=== PATIENT | male | born 1965 | race Caucasian/White ===

== ENCOUNTER 2016-08-02 09:22 | Observation (INO) ==
[2016-08-02] MEDS ORDERED: Aspirin 81 MG TAB.CHEW PO ONE (09:25)
[2016-08-02] MEDS ORDERED: Nitroglycerin 1 INCH/GM PACKET TP ONE (09:25)
--- NOTE | 2016-08-02 09:27 | Emergency Department Note ---
Disposition Clinical Impression: Chest pain Qualifiers: Chest pain type: precordial chest pain Qualified Code(s): R07.2 - Precordial pain Disposition: Admitted As Inpatient Condition: Good Chest Pain HPI - General Time Seen by Provider: 08/02/16 09:24 Source: patient, EMS, other (Patient's nurse practitioner) Mode of arrival: EMS Limitations: no limitations Vital Signs Reviewed: Yes Nursing Notes Reviewed: Yes - History of Present Illness HPI Narrative: Patient reports that he started having some anterior left chest discomfort on , 4 days ago. He states that it has been "staying there" but it is worse if he is up and exertional. When he is up and walking he gets more shortness of breath and some sweating. He denies any nausea, cough, fevers or chills. He denies abdominal or back pain. Denies any lower extremity swelling , immobilization or injury. He was seen in emergency department on Tuesday after being evaluated in urgent care. He did see his primary care provider today and has been referred back here for evaluation with the persistent pain. He states he does have some tightness in his left chest at this time. He denies that he has been having any other new symptoms, change in medicines, changes to answer caffeine. He does have a history of reported hypertension, elevated cholesterol and previous smoking. There is a family history of coronary disease in his father. Patient does not have history of diabetes or obesity. An EKG was performed of his primary care office and this was sent with the patient. This showed a sinus rhythm with a rate of 78, axis LXXI, NH interval 200 and a QT/QTc of 388/442. He did have left posterior fascicular block but no acute ischemic or infarct changes present. This is on my interpretation. Pt complaint: chest pain Onset (ago): day(s) (4) Duration: constant Onset: during rest Pain Location: substernal Severity: moderate Quality: tightness, heaviness Pain Radiation: none Improves with: rest Worsens with: exertion Associated symptoms: Reports: diaphoresis, dyspnea. Denies: nausea, vomiting, syncope, palpitations, fever, cough, leg swelling Treatments prior to arrival chest pain: none - Related Data Home Medications Medication Instructions Recorded Confirmed Alprazolam [Xanax 0.5 MG Tablet] 1 mg PO QID 03/16/15 07/28/16 Atorvastatin [Lipitor] 40 mg PO HS 03/16/15 07/28/16 Diltiazem CD (24hr) [Cardizem CD] 300 mg PO DAILY 03/16/15 07/28/16 [place] Carbonate ER [Lithobid] 600 mg PO BID 03/16/15 07/28/16 OxyCODONE Immed Rel [Roxicodone 15 15 mg PO Q4HR 03/16/15 07/28/16 MG] Paroxetine [Paxil] 60 mg PO DAILY 03/16/15 07/28/16 Tiotropium [Spiriva] 1 mcg AER DAILY 03/16/15 07/28/16 Albuterol Sulfate [Proair Hfa] 1 puff IH PRN PRN 11/05/15 07/28/16 BuPROPion SR (12 HR) [Wellbutrin 300 mg PO HS 11/05/15 07/28/16 SR] Pantoprazole Sodium [Protonix] 40 mg PO QAM 11/05/15 07/28/16 Lisinopril-HCTZ 20-12.5 [Prinzide 1 tab PO DAILY 02/10/16 07/28/16 20-12.5] Previous Rx's Medication Instructions Recorded Albuterol Sulfate [Albuterol 1 - 2 puff IH Q6HR PRN #1 07/28/16 Inhaler] hfa.aer.ad PredniSONE 20 mg PO DAILY #18 tablet 07/28/16 Allergies Allergy/AdvReac Type Severity Reaction Status Date / Time cephalexin [From Keflex] Allergy Anaphylaxis Verified 07/28/16 16:30 Latex, Natural Rubber Allergy Hives Verified 07/28/16 16:30 All systems ED: reviewed and negative except as stated. Chest Pain PMH - Past Medical History Medical history: Reports: hyperlipidemia, hypertension, other (Chronic pain) Surgical history: Reports: orthopedic, other (Left shoulder, left foot surgery and a back procedure), other (Cardiac catheterization 2010 showing minimal coronary artery disease) Psychiatric history: Reports: bipolar, depression - Social History Smoking Status: Former smoker Alcohol use: Reports: none Drug use: Reports: none Physical Exam - General Limitations: no limitations General appearance: alert, in no apparent distress - Head Head exam: atraumatic, normocephalic, normal inspection - Eye Eye exam: Present: normal appearance, PERRL, EOMI - ENT ENT exam: normal exam, normal oropharynx, mucous membranes moist - Neck Neck exam: Present: normal inspection, full ROM, trachea midline - Chest Chest inspection: Present: normal inspection, symmetric chest wall rise - Respiratory Respiratory exam: Present: normal lung sounds bilaterally. Absent: respiratory distress, wheezes, prolonged expiratory phase - Cardiovascular Cardiovascular exam: Present: regular rate, normal rhythm, normal heart sounds - Abdominal Exam Abdominal exam: Present: soft, Non-Tender, normal bowel sounds. Absent: tenderness, distention, guarding, rebound, rigidity - Extremities Exam Extremities exam: Present: normal inspection, full ROM, normal capillary refill. Absent: tenderness, pedal edema, calf tenderness - Expanded Lower Extremity Exam Neurovascular/Tendon exam: Present: normal capillary refill. Absent: motor deficit, sensory deficit, tendon deficit Gait: observed and normal - Back Exam Back exam: Present: normal inspection, full ROM. Absent: tenderness - Neurological Exam Neurological exam: Present: alert, oriented X3, CN II-XII intact - Psychiatric Psychiatric exam: Present: normal affect, normal mood. Absent: agitated, anxious - Skin Skin exam: Present: warm, dry, intact, normal color. Absent: diaphoresis, pallor Course Course Narrative: 1030: All results were discussed with the patient and Dr. Perez. He will be observed for serial enzymes and inpatient observation. Vital Signs Temperature 98.1 F 08/02/16 09:24 Pulse Rate 77 08/02/16 09:24 Respiratory Rate 16 08/02/16 09:24 Blood Pressure 134/77 08/02/16 09:24 O2 Sat by Pulse Oximetry 97 08/02/16 09:24 Temperature 98.1 F 08/02/16 09:24 Pulse Rate 77 08/02/16 09:24 Respiratory Rate 16 08/02/16 09:24 Blood Pressure 134/77 08/02/16 09:24 O2 Sat by Pulse Oximetry 97 08/02/16 09:36 Oxygen Delivery Oxygen Delivery Room Air Chest Pain - Differential Diagnosis Likely: unstable angina pectoris, atypical chest pain, chest pain - Medical Records Medical records reviewed: Yes I reviewed the patient's medical records. - Lab Data Lab results reviewed: Yes I reviewed the patient's lab results. Result diagrams: 08/02/16 09:49 08/02/16 09:49 Lab Results 08/02/16 08/02/16 08/02/16 Range/Units 09:49 09:49 09:49 WBC 11.7 H (4.3-11.1) K/mcL RBC 4.84 (4.19-5.50) M/mcL Hgb 14.6 (12.9-16.9) g/dL Hct 42.2 (37.5-50.1) % MCV 87.2 (83.0-100.0) fL MCH 30.2 (28.0-33.3) pg MCHC 34.6 (31.6-35.5) g/dL RDW 13.7 (11.5-14.5) % Plt Count 270 (140-400) K/mcL MPV 9.0 L (9.4-12.4) fL Immature Gran % 0.4 (0-4) % Seg Neutrophils % 70.4 % Lymphocytes % 17.5 % Monocytes % 8.5 % Eosinophils % 2.8 % Basophils % 0.4 % Neutrophils # 8.2 (1.6-8.9) K/mcL Lymphocytes # 2.1 (0.6-4.6) K/mcL Monocytes # 1.0 (0.0-1.3) K/mcL Eosinophils # 0.3 (0.0-0.6) K/mcL Basophils # 0.1 (0.0-0.2) K/mcL PT 10.3 (9.4-12.1) Seconds INR 1.0 APTT 34.0 (26.0-36.0) Seconds Sodium 138 (136-145) mEq/L Potassium 4.2 (3.5-4.5) mEq/L Chloride 107 (98-109) mEq/L Carbon Dioxide 23 (19-29) mEq/L BUN 12 (8-26) mg/dL Creatinine 0.74 (0.72-1.25) mg/dL Est GFR ( Amer) > 60 (> 60) Est GFR (Non-Af Amer) > 60 (> 60) BUN/Creatinine Ratio 16 (6-26) Glucose 107 H (70-99) mg/dL Calculated Osmolality 286 (280-300) Calcium 8.8 (8.6-10.8) mg/dL Troponin I (0-0.03) ng/mL 08/02/16 Range/Units 09:49 WBC (4.3-11.1) K/mcL RBC (4.19-5.50) M/mcL Hgb (12.9-16.9) g/dL Hct (37.5-50.1) % MCV (83.0-100.0) fL MCH (28.0-33.3) pg MCHC (31.6-35.5) g/dL RDW (11.5-14.5) % Plt Count (140-400) K/mcL MPV (9.4-12.4) fL Immature Gran % (0-4) % Seg Neutrophils % % Lymphocytes % % Monocytes % % Eosinophils % % Basophils % % Neutrophils # (1.6-8.9) K/mcL Lymphocytes # (0.6-4.6) K/mcL Monocytes # (0.0-1.3) K/mcL Eosinophils # (0.0-0.6) K/mcL Basophils # (0.0-0.2) K/mcL PT (9.4-12.1) Seconds INR APTT (26.0-36.0) Seconds Sodium (136-145) mEq/L Potassium (3.5-4.5) mEq/L Chloride (98-109) mEq/L Carbon Dioxide (19-29) mEq/L BUN (8-26) mg/dL Creatinine (0.72-1.25) mg/dL Est GFR ( Amer) (> 60) Est GFR (Non-Af Amer) (> 60) BUN/Creatinine Ratio (6-26) Glucose (70-99) mg/dL Calculated Osmolality (280-300) Calcium (8.6-10.8) mg/dL Troponin I 0.01 (0-0.03) ng/mL - Radiology Data Radiology results reviewed: Yes I reviewed the patient's radiology results. Single view chest x-ray is performed. This does not demonstrate evidence for infiltrate, effusion, pneumothorax, foreign body or heart failure. The cardiac silhouette is normal. I do not see abnormality to the osseous structures of the chest. This is on my interpretation. Impressions Chest X-Ray 08/02/16 09:25 IMPRESSION: No acute cardiopulmonary disease D/ / Tyler Rodriguez MD / Tyler Rodriguez MD Interpreting Provider: Tyler Rodriguez MD - EKG Data EKG attestation: Yes I reviewed and interpreted this EKG. EKG shows normal: sinus rhythm, axis, intervals, QRS complexes, ST-T waves Rate: normal (61) Gilbert/QRS: IVCD Interpretation: no acute changes Heart Score - Score History: Moderately Suspicious EKG: Normal Age: 45-65 Risk Factors: Equal/Greater than 3 risk factor or history of atherosclerotic disease Troponin: Less than normal limit HEART Score Total: 4
[2016-08-02] MEDS ORDERED: 0.9 % Sodium Chloride 1,000 ML IVC SCH ×2 (09:30→10:56)
[2016-08-02 09:55] LABS: Basophils # 0.1 K/mcL (0.0-0.2); Basophils % 0.4 %; Eosinophils # 0.3 K/mcL (0.0-0.6); Eosinophils % 2.8 %; Hematocrit 42.2 % (37.5-50.1); Hemoglobin 14.6 g/dL (12.9-16.9); Immature Granulocytes % 0.4 % (0-4); Lymphocytes # 2.1 K/mcL (0.6-4.6); Lymphocytes % 17.5 %; Mean Corpuscular HGB Conc 34.6 g/dL (31.6-35.5); Mean Corpuscular Hemoglobin 30.2 pg (28.0-33.3); Mean Corpuscular Volume 87.2 fL (83.0-100.0); Monocytes % 8.5 %; Neutrophils # 8.2 K/mcL (1.6-8.9); Platelet Count 270 K/mcL (140-400); Red Blood Count 4.84 M/mcL (4.19-5.50); Red Cell Distribution Width 13.7 % (11.5-14.5); Segmented Neutrophils % 70.4 %
[2016-08-02 10:02] LABS: Prothrombin Time 10.3 Seconds (9.4-12.1)
[2016-08-02 10:09] LABS: BUN/Creatinine Ratio 16 (6-26); Blood Urea Nitrogen 12 mg/dL (8-26); Calcium 8.8 mg/dL (8.6-10.8); Carbon Dioxide 23 mEq/L (19-29); Chloride 107 mEq/L (98-109); Glucose 107 mg/dL (70-99); Osmolality,Calculated 286 (280-300); Potassium 4.2 mEq/L (3.5-4.5); Sodium 138 mEq/L (136-145); eGFR For African Americans > 60 (> 60); eGFR For Non-African Americans > 60 (> 60)
[2016-08-02] MEDS ORDERED: Ondansetron 4 MG/2 ML VIAL IVP PRN (10:56)
[2016-08-02] MEDS ORDERED: Acetaminophen 325 MG TABLET PO PRN (10:56)
[2016-08-02] MEDS ORDERED: Naloxone 0.4 MG/ML INJ IVP PRN (10:56)
[2016-08-02] MEDS ORDERED: MOM Conc 10 ML UD.LIQ PO PRN (10:56)
[2016-08-02] MEDS ORDERED: *HR* OxyCODONE Immed Rel 15 MG TABLET PO PRN ×2 (13:56→14:24)
--- NOTE | 2016-08-02 15:48 | Internal Med History&Physical ---
Date of Encounter: 08/02/16 Time of Encounter: 15:10 Assessment and Plan (1) Chest pain Current visit: Yes Status: Acute Doubt myocardial ischemic origin based on history and physical. Repeat cardiac enzymes have been ordered. I will order a d-dimer and give him naproxen. Further workup will be done as needed. Qualifiers: Chest pain type: precordial chest pain Qualified Code(s): R07.2 - Precordial pain (2) Weight loss Current visit: Yes Status: Acute I note TSH was suppressed at 0.289 on 09/22/2015. We will recheck TSH. He may need further workup (3) Hyperlipidemia Current visit: No Status: Chronic We will check lipid profile in a.m. Qualifiers: Hyperlipidemia type: unspecified Qualified Code(s): E78.5 - Hyperlipidemia , unspecified (4) Anxiety Current visit: Yes Status: Chronic Continue Xanax (5) Bipolar 1 disorder Current visit: Yes Status: Acute Continue lithium, Paxil, and Wellbutrin. Internal Medicine - H&P: HPI Chief complaint: Chest discomfort Admitted From: Home Plans for Post Hospital Care: Home History of present illness: Mr. Marquez is a 51 year old male who was sent to the emergency room from his PCP office this morning for complaints of persistent discomfort in his chest. Onset was July 29 when he was nonexertional. He states the pain is sharp and occurs more on inspiration. He has had no significant cough but has had more noticeable dyspnea. He reports having sensation of chilling and night sweats for the last 2-4 weeks. He was evaluated in emergency room and admitted to [facility] floor for ongoing care needs. His respiratory history significant for having smoked from age [age] up to 2 packs per day. He has not had PFTs or been tested for FIDENCIO. He does not have any known chronic lung disease. His cardiovascular history is significant for hypertension. He denies heart failure. He had a Regadenoson EST 11/06/2015 which showed LVEF of 56% with EKG and myocardial perfusion imaging negative for ischemia or infarct. He had a heart catheterization approximately 15 years ago which he reports was negative. He reports occasional ankle edema. He denies DVT or pulmonary embolus. He states he was told in the past by one physician he may have had a PR but he was unaware of the time the PR might have occurred. Past Med Surg Social Fam HX - Past Medical History Medical history: hyperlipidemia, hypertension, other (Chronic pain) Psychiatric history: bipolar, depression - Past Surgical History Surgical History: orthopedic, other (Left shoulder, left foot surgery and a back procedure), other (Cardiac catheterization 2010 showing minimal coronary artery disease) - Social History Smoking Status: Former smoker Smokeless Tobacco Status: Yes (snuff) Alcohol use: none Drug use: none - Family History Mother Living Status: Hx Family Cancer: Yes (lung) Internal Medicine - H&P: Meds Alprazolam [Xanax 0.5 MG Tablet] 1 mg PO QID 03/16/15 [History] Atorvastatin [Lipitor] 40 mg PO HS 03/16/15 [History] Diltiazem CD (24hr) [Cardizem CD] 300 mg PO DAILY 03/16/15 [History] [place] Carbonate ER [Lithobid] 600 mg PO BID 03/16/15 [History] OxyCODONE Immed Rel [Roxicodone 15 MG] 15 mg PO Q4HR 03/16/15 [History] Paroxetine [Paxil] 60 mg PO DAILY 03/16/15 [History] Tiotropium [Spiriva] 1 mcg AER DAILY 03/16/15 [History] Albuterol Sulfate [Proair Hfa] 1 puff IH PRN PRN 11/05/15 [History] BuPROPion SR (12 HR) [Wellbutrin SR] 300 mg PO HS 11/05/15 [History] Pantoprazole Sodium [Protonix] 40 mg PO QAM 11/05/15 [History] Lisinopril-HCTZ 20-12.5 [Prinzide 20-12.5] 1 tab PO DAILY 02/10/16 [History] Albuterol Sulfate [Albuterol Inhaler] 1 - 2 puff IH Q6HR PRN #1 hfa.aer.ad 07/28 [Rx] PredniSONE 20 mg PO DAILY #18 tablet 07/28/16 [Rx] Allergies cephalexin [From Keflex] Allergy (Verified 07/28/16 16:30) Anaphylaxis Latex, Natural Rubber Allergy (Verified 07/28/16 16:30) Hives All Systems PM: A 10-system review of systems was performed and is negative for pertinent findings except as documented above in the HPI. Review of systems: Gen.: He states his weight is decreased from approximately 226 pounds one year ago to present weight of approximately 188 pounds. This was unintentional and unexplained Cardiovascular: As per history of present illness Respiratory: As per history of present illness GI: He has had hemorrhoids with surgery in the past. He denies disorders of his liver gallbladder or exocrine pancreas. : He denies hematuria dysuria or kidney stones Neurologic: He denies known strokes or seizures Endocrine: He has history of hyperlipidemia. He denies diabetes or thyroid disease Hematology/oncology: He denies blood disorders cancers or anemia Psychiatric: He has anxiety and bipolar disorder [place] skeletal: He has had surgery on his low back, left shoulder, and left foot. He denies significant DJD, gout, or other bone joint or muscle disorders. - Constitutional Vitals: Temp Pulse Resp BP Pulse Ox 98.0 F 86 16 133/87 95 08/02/16 14:36 08/02/16 14:36 08/02/16 14:36 08/02/16 14:36 08/02/16 14:36 Exam: Gen.: He is well-developed well-nourished male who appears in no severe distress at present time. HEENT: Head is atraumatic and normocephalic. Eyes: EOMI. There is no scrotal icterus. Mouth: Mucosa is moist. Neck: Supple and nontender. There is no thyromegaly or adenopathy noted. Heart: Regular without murmurs gallops or ectopics. Lungs: No wheezes or crackles are heard. Chest: He is nontender in his chest wall to palpation. Abdomen: Soft and nontender. No masses or guarding are noted. Extremities: There is no cyanosis edema or clubbing noted. Dorsalis pedis and posterior tibial pulses are 1-2 over 2 bilaterally. Neurologic: Mental status: He is talkative and a good historian. Cranial nerves : Smile is symmetric. Forehead wrinkles bilaterally. Tongue protrudes midline. EOMI. Motor: There is no pronator drift. Cerebellar: Finger to nose is intact bilaterally. Skin: Warm and dry Internal Med - H&P Results - Labs CBC & Chem 7: 08/02/16 09:49 08/02/16 09:49
[2016-08-02] MEDS ORDERED: Lisinopril-HCTZ 20-12.5mg TABLET PO SCH (20:45)
[2016-08-02] MEDS: Diltiazem CD (24hr) 300 MG CAPSULE PO SCH (21:09)
[2016-08-02] MEDS: Lisinopril 20 MG TABLET PO SCH (21:10)
[2016-08-02] MEDS: *HR* OxyCODONE Immed Rel 15 MG TABLET PO PRN (21:10)
[2016-08-03] MEDS: *HR* OxyCODONE Immed Rel 15 MG TABLET PO PRN ×4 (01:20→14:36)
[2016-08-03 04:37] LABS: Chol/HDL Ratio 6.9 (0-4.9); Cholesterol 250 mg/dL (< 200); HDL Cholesterol 36 mg/dL (40-59); Triglycerides 599 mg/dL (< 150)
[2016-08-03] MEDS: Lisinopril 20 MG TABLET PO SCH (08:04)
[2016-08-03] MEDS: Diltiazem CD (24hr) 300 MG CAPSULE PO SCH (08:04)
[2016-08-03 10:50] VITALS: BP 114/76
--- NOTE | 2016-08-03 14:07 | Discharge Summary ---
Date of Encounter: 08/03/16 Time of Encounter: 13:55 - Discharge Diagnosis (1) Chest pain Priority: Primary Status: Acute Qualifiers: Chest pain type: precordial chest pain Qualified Code(s): R07.2 - Precordial pain (2) Weight loss Priority: Secondary Status: Acute (3) Hyperlipidemia Priority: Secondary Status: Chronic Qualifiers: Hyperlipidemia type: unspecified Qualified Code(s): E78.5 - Hyperlipidemia , unspecified (4) Anxiety Priority: Secondary Status: Chronic (5) Bipolar 1 disorder Priority: Secondary Status: Acute (6) Low serum thyroid stimulating hormone (TSH) Priority: Secondary Status: Acute - Discharge Medications Home Medications: Alprazolam [Xanax 0.5 MG Tablet] 1 mg PO QID 03/16/15 [History] Atorvastatin [Lipitor] 40 mg PO HS 03/16/15 [History] Diltiazem CD (24hr) [Cardizem CD] 300 mg PO DAILY 03/16/15 [History] [place] Carbonate ER [Lithobid] 600 mg PO BID 03/16/15 [History] OxyCODONE Immed Rel [Roxicodone 15 MG] 15 mg PO Q4HR 03/16/15 [History] Paroxetine [Paxil] 60 mg PO DAILY 03/16/15 [History] Tiotropium [Spiriva] 1 mcg AER DAILY 03/16/15 [History] Albuterol Sulfate [Proair Hfa] 1 puff IH PRN PRN 11/05/15 [History] BuPROPion SR (12 HR) [Wellbutrin SR] 300 mg PO HS 11/05/15 [History] Pantoprazole Sodium [Protonix] 40 mg PO QAM 11/05/15 [History] Lisinopril-HCTZ 20-12.5 [Prinzide 20-12.5] 1 tab PO DAILY 02/10/16 [History] Albuterol Sulfate [Albuterol Inhaler] 1 - 2 puff IH Q6HR PRN #1 hfa.aer.ad 07/28 [Rx] PredniSONE 20 mg PO DAILY #18 tablet 07/28/16 [Rx] Allergies/Adverse Reactions: Allergies cephalexin [From Keflex] Allergy (Verified 07/28/16 16:30) Anaphylaxis Latex, Natural Rubber Allergy (Verified 07/28/16 16:30) Hives Procedures/tests Complete & Pending: Procedures Performed prior 72 hours Category Date Time Status CT angio chest [CT] Routine Cat Scan 08/03/16 12:20 Completed Date of admission: 08/02/16 10:39 Primary care physician: Tejal Chen CNP - Patient Status Disposition: Home, Self-Care Condition: Good Overall status at discharge: patient is progressing back to baseline - Discharge Instructions Follow Up With: Tejal Chen CNP [Primary Care Provider] - 1 week Forms: ED Satisfaction Letter - Diet and Activity Activity: resume usual activities as tolerated Diet: advance to your usual diet Hospital course: Mr. Marquez is a 51 year old male who was sent to the emergency room from his PCP office this morning for complaints of persistent discomfort in his chest. Onset was July 29 when he was nonexertional. He states the pain is sharp and occurs more on inspiration. He has had no significant cough but has had more noticeable dyspnea. He reports having sensation of chilling and night sweats for the last 2-4 weeks. He was evaluated in emergency room and admitted to [facility] for ongoing care needs. Initial orders written by the emergency room physician. I saw him on August 02 and performed a history and physical. Cardiac enzymes showed no evidence of myocardial damage. When I saw him I did not think pain was likely to be of myocardial ischemic origin. A d-dimer returned slightly elevated at 616. A chest CTA was done that showed no evidence of pulmonary embolism. There were several nodules 4 mm or less in size throughout the lung gayle. The basilar nodules were stable compared to abdominal/pelvis CT done in June 2015. It was recommended a repeat CT PE done in 6-12 months to follow-up on the nodules. TSH returned low at 0.154. A previous TSH done in 09/22/2015 was also low at 0.289. Do further workup during his brief hospital stay. I will let Devendra Chen CNP coordinate further workup for possible hyperthyroxinemia which might explain his weight loss and sweating etc. There were no other new problems that developed and on the afternoon of August 03 I felt he was stable for discharge home. He will follow with Tejal Chen CNP within 1 week. - Time Spent with Patient Total time spent providing and/or coordinating discharge services: - Constitutional Vitals: Temp Pulse Resp BP Pulse Ox 97.6 F 84 16 114/76 96 08/03/16 10:43 08/03/16 10:43 08/03/16 10:43 08/03/16 10:43 08/03/16 10:43
--- NOTE | 2016-08-03 14:33 | Electrocardiograph Report ---
[facility] Test Date: 2016-08-02 Pat Name: Abdiaziz Marquez Department: [id number] Room: [facility] Gender: M [employer] Developer: [id number] : 1965 Requested By: Mejia Lizarraga Order Number: [id number] Reading MD: Wanda Rodrigues Measurements Intervals [place] Rate: 61 P: 53 VA: 192 QRS: 65 QRSD: 130 T: 72 QT: 431 QTc: 434 Interpretive Statements SINUS RHYTHM POSSIBLE RIGHT VENTRICULAR CONDUCTION DELAY Electronically Signed On 08-03-16 14:23:10 EST by Wanda Rodrigues
== END 2016-08-03 16:30 | disposition home or self-care (01) ==
LOC: EMEROOPIK 09:22 → INPPIK 09:22
PROVIDERS: ADMIT Internal Medicine; ATTEND Internal Medicine